=== PATIENT | female | born 1965 | race Caucasian/White ===

== ENCOUNTER 2024-07-24 08:51 | Outpatient (AMB) | payer MEDICAID, SELFPAY ==
[2024-07-24 09:02] VITALS: BP 198/98; PULSE 95; RESP 19; TEMP 36.5; O2SAT 92; BMI 25.4
--- NOTE | 2024-07-24 09:02 | ORTHONT_ITS ---
Vital signs 07/24/24 09:02 Height 1.75 m Height Method Stated Weight 78.188 kg Weight Measurement Method Standing Scale BMI 25.4 BP 198/98 H Blood Pressure Source Automatic Cuff Blood Pressure Location Right Upper Arm Position Sitting Respiration 19 Pulse 95 Pulse Source Monitor Temp 97.7 F Temp Source Temporal Artery Scan Pulse Oximetry (%) 92 L Oxygen Delivery Method Room Air Med/Allergies Allergies & Medications Allergies NKA* Allergy (Uncoded 07/24/24 09:03) Medication Reconciliation No Known Home Medications 07/24/24 [History Confirmed 07/24/24] Exam Exam Patient is in no acute distress and is cooperative with the examination today. Breathing is nonlabored. In no respiratory distress. Patient has paraspinal tenderness. Patient has significant kyphosis The gait of the patient is nonantalgic Bilateral extremities were evaluated and demonstrates sensation intact to light touch. Palpable pedal pulses are present. No significant edema is present. Bilateral knees were examined and the patient has full strength and range of motion.. The left hip was examined. Patient was able to flex to 90 degrees, adduct to 30 degrees, abduct to 40 degrees, internally rotate to 20 degrees, and externally rotate to 20 degrees. Patient has a negative logroll. Stinchfield is negative. The patient is nontender diffusely to touch. The right hip was examined. Patient was able to flex to 90 degrees, adduct to 30 degrees, abduct to 40 degrees, internally rotate to 0 degrees, and externally rotate to 0 degrees. Patient has a negative logroll. The stinchfield is negative. There is significant crepitus with motion Assessment and Plan Problem List (1) Radicular pain of right lower extremity: Status: Acute Plan: Patient is a 59-year-old female with significant right radicular pain. The pain starts in the back and radiates down her toes. Described as burning and numbness. She has a lot of crepitus with any motion of her hip. She is significant fibrosis when she walks. We have no x-rays and we will see her back after her x-rays are done Office Procedures GNS Level of Care Nursing/Assessment Patient Status: Initial/New Patient Nursing Assessment/Reassesment: Medication Reconciliation, Update PMH in EMR and Vital Signs Coordination of Care: Complex Care and Chronic Disease 1-5, Education Complex Pt/Fam, Consent,records obtained, informed consent, Results/Orders obtained and Staff clarify orders New Patient Charge New Patient Point Assignment: 1094 New Patient Point Charge: MANAGER RENEWABLE ENERGY Level 3 ([id number]) MA Intake Visit Data Collection New Patient or Established: New Patient not seen in past 3 years at [facility] (considered New) Reason for Visit:: RIGHT KNEE PAIN Seen by Clinical Staff ONLY (RN/MA): No Verbal consent obtained for Telemed visit?: No Curtain 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 Required: No PCP or OBGYN visit in last 3 months: Yes Hx Now: No Do You Feel Safe at Home: Yes Authorities Contacted: N/A Questionairres Past Medical History Past Medical History Have you ever been diagnosed with any of the following: Respiratory Problems Smoking: Yes Smoking Cessation Counseling: No Smoking Exposure: Yes Subjective Visit Visit for: new patient and knee Immunization / Flu Flu Vaccine in the Last 12 Months: No Flu Vaccine Exclusion Criteria: No Exclusion Criteria History of Present Illness Chief complaint: RIGHT KNEE PAIN Patient is a 58-year-old female presenting with right hip and knee pain. Patient reports the pain is present constantly even at rest it radiates from the top of the thigh down to the toes. She describes the pain as burning. Patient reports this pain has been present for 1 year and began after Getting hit by her dog which caused an internal rotation of the right hip joint.Patient reports taking aspirin to control the pain.Patient reports this has decreased her ability to walk And requests a walker. Personal History Occupation: UNEMPLOYED Red flag PMH: smoker BMI Counceling provided: No Pain Pain level (0-10): 10 Pain duration: ALL DAY Pain location: groin, inside (medial), outside (lateral) and anterior Pain quality: sharp and aching Pain timing: night Associated signs & symptoms: none Ambulatory data Ambulatory device: none Treatments Improvement with previous injections: No Improvement with PT: No Improvement with NSAIDS: no Review of Systems Review of Systems: All systems negative unless otherwise noted in HPI.
== END 2024-07-24 09:29 | disposition home or self-care (01) ==
LOC: HODSRG 08:51
PROVIDERS: PCP Licensed Practical Nurse; Referring Provider Licensed Practical Nurse; Supervising Provider Orthopaedic Surgery Adult Reconstructive Orthopaedic Surgery; Visit Provider Orthopaedic Surgery Adult Reconstructive Orthopaedic Surgery
DX: M79.661 Pain in right lower leg (principal)
CPT/HCPCS: 99203; G0463

== ENCOUNTER → 2024-07-24 | Outpatient (CLI) | payer MEDICAID, SELFPAY ==
--- NOTE | 2024-07-24 | XR_ITS ---
Examination: Right knee 4 views TECHNIQUE: AP AP flexion lateral axial right knee 4 views Exam date and time: July 24, 2024 1111 hours INDICATIONS: Knee pain years FINDINGS: Prominent osteopenia Mild to moderate narrowing medial joint space Early osteoarthritis patellofemoral joint No fracture No patellar dislocation IMPRESSION: Mild to moderate narrowing medial joint space
--- NOTE | 2024-07-24 | XR_ITS ---
Examination:Right hip AP, lateral, AP pelvis 3 views Technique: Hip AP lateral, AP pelvis, 3 views Exam date and time:July 24, 2024 1107 hours INDICATIONS: Right hip pain years FINDINGS: Significant osteopenia Severe narrowing right hip joint No right hip fracture or dislocation Radiolucencies and sclerosis in the right femoral head Moderate narrowing left hip joint Bones of the pelvis intact IMPRESSION: Advanced right hip osteoarthritis Suspicious for avascular necrosis right femoral head.
--- NOTE | 2024-07-24 10:34 | XR_ITS ---
Examination: Lumbar spine 2 views TECHNIQUE: AP lateral lumbar spine 2 views Exam date and time: July 24, 2024 1122 hours INDICATIONS: Lower back pain, years FINDINGS: Prominent osteopenia No lumbar fracture Grade 1 anterolisthesis L5 on S1 Mild diffuse lumbar disc narrowing Extensive staghorn calculi in the left renal pelvis and left renal calyces 7 mm right renal calculus IMPRESSION: Mild diffuse lumbar disc narrowing Extensive staghorn calculi left renal pelvis and left renal calyces 7 mm right renal calculus
== END | disposition home or self-care (01) ==
PROVIDERS: Referring Provider Orthopaedic Surgery Adult Reconstructive Orthopaedic Surgery; Visit Provider Orthopaedic Surgery Adult Reconstructive Orthopaedic Surgery
DX: M16.11 Unilateral primary osteoarthritis, right hip (principal); N20.0 Calculus of kidney; M48.061 Spinal stenosis, lumbar region without neurogenic claudication; M25.861 Other specified joint disorders, right knee
CPT/HCPCS: 72100; 73502; 73564

== ENCOUNTER 2024-08-24 15:51 | Outpatient (AMB) | payer MEDICAID, SELFPAY ==
--- NOTE | 2024-08-24 15:51 | PD.ORTHTELE ---
Med/Allergies Allergies & Medications Allergies NKA* Allergy (Uncoded 08/24/24 15:51) Medication Reconciliation No Known Home Medications 07/24/24 [History Confirmed 08/24/24] Subjective Visit Visit for: x-rays Immunization / Flu Flu Vaccine in the Last 12 Months: No Flu Vaccine Exclusion Criteria: No Exclusion Criteria History of Present Illness Chief complaint: TELEMED XRAYS Patient is a 58-year-old female presenting with right hip and knee pain. Patient reports the pain is present constantly even at rest it radiates from the top of the thigh down to the toes. She describes the pain as burning. Patient reports this pain has been present for 1 year and began after Getting hit by her dog which caused an internal rotation of the right hip joint.Patient reports taking aspirin to control the pain.Patient reports this has decreased her ability to walk And requests a walker. She has a very abnormal gait X-rays of the right hip look like there is avascular necrosis. I want to see her back after CT is done. This looks like there is ankylosis of the hip joint. Pain Pain level (0-10): 0 Ambulatory data Ambulatory device: walker Treatments Improvement with previous injections: No Improvement with PT: No Improvement with NSAIDS: no Review of Systems Review of Systems: All systems negative unless otherwise noted in HPI. Assessment and Plan Problem List (1) Radicular pain of right lower extremity: Status: Acute Plan: Patient is a 59-year-old female with significant right radicular pain. The pain starts in the back and radiates down her toes. Described as burning and numbness. She has atypical symptoms and significant right hip avascular porosis. I am going get a CT as her hip is like it is fused and it looks very strange to be quite vilma. We will see her back after her hip CT is done Office Procedures GNS Level of Care Nursing/Assessment Patient Status: Established Patient Nursing Assessment/Reassesment: Medication Reconciliation, Update PMH in EMR and Vital Signs Coordination of Care: Complex Care and Chronic Disease 1-5, Education Complex Pt/Fam, Consent,records obtained, informed consent, Results/Orders obtained and Staff clarify orders Established Patient Charge Established Patient Point Assignment: 95 Established Patient Point Charge: EP Level 3 (80-115) Telehealth Telemed Phone/Video with patient at home & Dr,PA,HAT FORMING MACHINE FEEDER: Yes
== END 2024-08-24 15:55 | disposition home or self-care (01) ==
LOC: HODSRG 15:51
PROVIDERS: PCP Licensed Practical Nurse; Referring Provider Licensed Practical Nurse; Supervising Provider Orthopaedic Surgery Adult Reconstructive Orthopaedic Surgery; Visit Provider Orthopaedic Surgery Adult Reconstructive Orthopaedic Surgery
DX: M79.661 Pain in right lower leg (principal)
CPT/HCPCS: 99212; 99213; G0463

== ENCOUNTER 2025-01-10 09:47 | Outpatient (AMB) | payer MEDICAID, SELFPAY ==
[2025-01-10 10:21] VITALS: BP 183/91; PULSE 80; RESP 19; TEMP 36.4; O2SAT 92; BMI 25.8
--- NOTE | 2025-01-10 10:21 | ORTHONT_ITS ---
Vital signs 01/10/25 10:21 Height 1.75 m Height Method Stated Weight 79.124 kg Weight Measurement Method Standing Scale BMI 25.8 BP 183/91 H Blood Pressure Source Automatic Cuff Blood Pressure Location Left Upper Arm Position Sitting Respiration 19 Pulse 80 Pulse Source Monitor Temp 97.6 F Temp Source Temporal Artery Scan Pulse Oximetry (%) 92 L Oxygen Delivery Method Room Air Med/Allergies Allergies & Medications Allergies NKA* Allergy (Uncoded 01/10/25 10:22) Medication Reconciliation No Known Home Medications 07/24/24 [History Confirmed 01/10/25] Exam Exam Patient is in no acute distress and is cooperative with the examination today. Breathing is nonlabored. In no respiratory distress. Patient has paraspinal tenderness. Patient has significant kyphosis The gait of the patient is antalgic. She is significant kyphosis and is walking with significant hunched back deformity Bilateral extremities were evaluated and demonstrates sensation intact to light touch. Palpable pedal pulses are present. No significant edema is present. Bilateral knees were examined and the patient has full strength and range of m otion.. The left hip was examined. Patient was able to flex to 90 degrees, adduct to 30 degrees, abduct to 40 degrees, internally rotate to 20 degrees, and externally rotate to 20 degrees. Patient has a negative logroll. Stinchfield is negative. The patient is nontender diffusely to touch. The right hip was examined. Patient was able to flex to 90 degrees, adduct to 30 degrees, abduct to 40 degrees, internally rotate to 0 degrees, and externally rotate to 0 degrees. Patient has a negative logroll. The stinchfield is negative. There is significant crepitus with motion Patient is a 59-year-old female with significant right hip avascular porosis and significant spinal issues. She is walking with significant deformity. Assessment and Plan Problem List (1) Radicular pain of right lower extremity: Status: Acute Plan: Patient is a 59-year-old female with significant right radicular pain. She is significant right hip necrosis and has a significant deformity in her spine. I discussed with her that I am worried about doing a total hip replacement due to her social support and because of her back issues. She has significant kyphosis in her spine and I think she is at high risk for dislocation. I discussed this with the patient. I discussed with her that I do not think a hip replacement a great idea for her. I do think that she is welcome to get a second opinion as I do not think she is a great candidate for surgery. She is also have has extremely high blood pressures and we discussed this with the patient that she is certainly not medically optimized. Her social situation is also not great. Office Procedures GNS Level of Care Nursing/Assessment Patient Status: Established Patient Nursing Assessment/Reassesment: Medication Reconciliation, Update PMH in EMR and Vital Signs Coordination of Care: Complex Care and Chronic Disease 1-5, Education Complex Pt/Fam, Consent,records obtained, informed consent, Results/Orders obtained and Staff clarify orders Established Patient Charge Established Patient Point Assignment: 95 Established Patient Point Charge: EP Level 3 (80-115) MA Intake Visit Data Collection Reason for Visit:: RIGHT KNEE PAIN Seen by Clinical Staff ONLY (RN/MA): No Verbal consent obtained for Telemed visit?: No Director Of Personnel Required: No PCP or OBGYN visit in last 3 months: Yes Hx Now: No Do You Feel Safe at Home: Yes Authorities Contacted: N/A Questionairres Past Medical History Past Medical History Have you ever been diagnosed with any of the following: Respiratory Problems Smoking: Yes Smoking Cessation Counseling: No Smoking Exposure: Yes Subjective Visit Visit for: new patient and knee Immunization / Flu Flu Vaccine in the Last 12 Months: No Flu Vaccine Exclusion Criteria: No Exclusion Criteria History of Present Illness Chief complaint: RIGHT KNEE PAIN Patient is a 58-year-old female presenting with right hip and knee pain. Patient reports the pain is present constantly even at rest it radiates from the top of the thigh down to the toes. She describes the pain as burning. Patient reports this pain has been present for 1 year and began after Getting hit by her dog which caused an internal rotation of the right hip joint.Patient reports taking aspirin to control the pain.Patient reports this has decreased her ability to walk And requests a walker. The patient lives alone at home Personal History Occupation: UNEMPLOYED Red flag PMH: smoker BMI Counceling provided: No Pain Pain level (0-10): 10 Pain duration: ALL DAY Pain location: groin, inside (medial), outside (lateral) and anterior Pain quality: sharp and aching Pain timing: night Associated signs & symptoms: none Ambulatory data Ambulatory device: none Treatments Improvement with previous injections: No Improvement with PT: No Improvement with NSAIDS: no Review of Systems Review of Systems: All systems negative unless otherwise noted in HPI.
== END 2025-01-10 10:33 | disposition home or self-care (01) ==
LOC: HODSRG 09:47
PROVIDERS: Supervising Provider Orthopaedic Surgery Adult Reconstructive Orthopaedic Surgery; Visit Provider Orthopaedic Surgery Adult Reconstructive Orthopaedic Surgery
DX: M25.551 Pain in right hip (principal); M25.561 Pain in right knee; S79.911A Unspecified injury of right hip, initial encounter; W54.1XXA Struck by dog, initial encounter; M87.88 Other osteonecrosis, other site; M40.299 Other kyphosis, site unspecified
CPT/HCPCS: 99213; G0463